=== PATIENT | male | born 1940 | race Caucasian/White ===

== ENCOUNTER → 2019-03-02 | Outpatient (REF) | LOC: M LAB LCGH 12:47 | PROVIDERS: ATTEND Surgery | DX: D64.9 Anemia, unspecified (principal) ==

== ENCOUNTER → 2019-05-31 | Outpatient (REF) | payer SELFPAY | LOC: M SFHCPLAZ 11:30 | PROVIDERS: ATTEND Internal Medicine Infectious Disease | DX: Z22.321 Carrier or suspected carrier of Methicillin susceptible Staphylococcus aureus (principal); T81.30XA Disruption of wound, unspecified, initial encounter ==

== ENCOUNTER → 2022-01-18 | Outpatient (CLI) | payer SELFPAY ==
[~2022-01-18] MED LIST: ACET1TAB55 PO; CIPR500T39; ECOT81TA5 PO; ELIQ5TAB; FAMO20TA5; HYDR-3490; LIDOCAINE 1% MDV 20ML VIAL As Ordered ONE; LOSA50TA28; METR-265; OXYC1TAB23; PRAV40TA2; TAMS1CAP17
[2022-01-18 11:26] VITALS: BP 165/92
== END ==
LOC: M IRPRO 08:42
PROVIDERS: ATTEND Specialist
DX: C78.7 Secondary malignant neoplasm of liver and intrahepatic bile duct (principal)

== ENCOUNTER → 2022-02-07 | Outpatient (CLI) | payer SELFPAY ==
[~2022-02-07] MED LIST changes: -FAMO20TA5; +FAMO20TA5 PO; -HYDR-3490; +HYDR-3490 PO; +ISOVUE-370 76% 100ML VIAL As Ordered ONE; -LIDOCAINE 1% MDV 20ML VIAL As Ordered ONE; -LOSA50TA28; +LOSA50TA28 PO; -PRAV40TA2; +PRAV40TA2 PO; -TAMS1CAP17; +TAMS1CAP17 PO
== END ==
LOC: M RAD 15:55
PROVIDERS: ATTEND Specialist
DX: C78.7 Secondary malignant neoplasm of liver and intrahepatic bile duct (principal); J84.9 Interstitial pulmonary disease, unspecified; J98.11 Atelectasis; I70.0 Atherosclerosis of aorta; I25.10 Atherosclerotic heart disease of native coronary artery without angina pectoris
CPT/HCPCS: 71260; Q9967